=== PATIENT | male | born 1930 | race Hispanic/Latino ===

== ENCOUNTER 2019-01-29 12:08 | Inpatient (IN) | payer MEDICARE ==
--- NOTE | 2019-01-29 12:49 | RAD ---
RADIOGRAPH CHEST 1 VIEW: DATE: 01/29/2019 TIME: 12:26 PM HISTORY: 88-year-old male status post chest trauma from fall COMPARISON: None available FINDINGS: There is a patchy airspace density at the right mid-lower lung zone. No pulmonary edema. No pneumotho rax. IMPRESSION: Right-sided infiltrate: Pneumonia versus aspiration pneumonia.
[2019-01-29 13:13] LABS: #Lymphocytes 0.8 thou/uL (1.20-3.40); #Monocytes 0.3 thou/uL (0.11-0.59); #Neutrophils 7.3 thou/uL (1.40-6.50); %Basophils 0.1 % (0.0-1.0); %Eosinophils 0.1 % (0.0-10.0); %Lymphocytes 9.2 % (21.0-51.0); %Monocytes 3.4 % (0.0-10.0); %Neutrophils 87.2 % (42.0-75.0); Hemoglobin 13.8 g/dL (14.0-18.0); Mean Corpuscular HGB CONC 33.2 g/dL (32.0-36.0); Mean Corpuscular Hemoglobin 30.2 pg (27.0-31.0); Mean Corpuscular Volume 90.8 fL (78.0-98.0); Platelet Count 207 thou/uL (130-400); RBC Distribution Width 12.6 % (11.5-14.5); Red Blood Cell (RBC) Count 4.58 mill/uL (4.70-6.10); White Blood Cell (WBC) Count 8.4 thou/uL (4.8-10.8)
[2019-01-29 13:32] LABS: Acetaminophen Less than 6.0 mcg/mL (10.0-30.0); Alcohol Less than 10 mg/dL (Less than 10); Salicylate Less than 8.0 mg/dL (15.0-30.0)
[2019-01-29 13:36] LABS: ALT (SGPT) 44 U/L (8-55); AST (SGOT) 27 U/L (5-34); Albumin 4.1 g/dL (3.4-4.8); Alkaline Phosphatase 102 U/L (40-150); Anion Gap 15 mmol/L (10-20); BUN (Urea Nitrogen) 19 mg/dL (8.4-25.7); Bilirubin, Total 0.9 mg/dL (0.2-1.2); CK (CPK) 278 U/L (30-200); Calc. Creatinine Clearance 0 mL/min (70-130); Calcium 9.5 mg/dL (7.8-10.44); Carbon Dioxide 23 mmol/L (23-31); Chloride 104 mmol/L (98-107); Estimated GFR-MDRD 66; Glucose 87 mg/dL (83-110); Potassium 4.1 mmol/L (3.5-5.1); Protein, Total 7.1 g/dL (5.8-8.1); Sodium 138 mmol/L (136-145)
[2019-01-29] MEDS ORDERED: Azithromycin 500 MG VIAL ONE (13:59)
[2019-01-29] MEDS ORDERED: cefTRIAXone\\ROCEPHIN 2 GM VIAL ONE (14:00)
--- NOTE | 2019-01-29 14:08 | CT ---
CT OF HEAD NONCONTRAST: 01/29/19 INDICATION: Altered mental status. COMPARISON: 10/20/18. FINDINGS: Again demonstrated, there is a moderate sized region of encephalomalacia involving the posterior righ t cerebral hemisphere with associated ex vacuo dilatation of the ventricular system. Mild chronic isc hemic disease of the cerebral white matter is redemonstrated. There is no intracranial hemorrhage, ma ss effect or midline shift. IMPRESSION: Stable head CT, without acute intracranial hemorrhage or mass effect. POS: C
[2019-01-29 15:09] LABS: Bilirubin Negative (Negative); Blood, Urine Trace (Negative); Glucose, Urine (Dipstick) Negative (Negative); Leukocyte Negative (Negative); Nitrite Negative (Negative); Protein, Urine (Dipstick) Negative (Neg-Trace); Urobilinogen 0.2 mg/dL (Less than 2)
[2019-01-29 15:11] LABS: Clarity Clear (Clear)
[2019-01-29 15:16] LABS: Bacteria/HPF None Seen HPF (None Seen); Hyaline Casts/LPF NONE SEEN LPF (0-3 Hyaline); RBC/HPF 0-3 HPF (0-3); Squamous Epithelial 0-3 HPF (0-3); WBC/HPF 0-3 HPF (0-3)
[2019-01-29 15:19] LABS: Amphetamine Not Detected (NotDetected); Barbiturates Screen Not Detected (NotDetected); Benzodiazepine Screen Not Detected (NotDetected); Cocaine Metabolite Screen Not Detected (NotDetected); Medtox Control Line Valid? VALID (VALID); Medtox Reader # READER 1; Methadone Not Detected (NotDetected); Methamphetamine Not Detected (NotDetected); Opiate Screen Not Detected (NotDetected); Oxycodone Screen Not Detected (NotDetected); Phencyclidine (PCP) Not Detected (NotDetected); THC/Cannabinoid Screen Not Detected (NotDetected); Tricyclic Screen Not Detected (NotDetected)
[2019-01-29] MEDS ORDERED: Lorazepam 2 MG/ML VIAL SLOW IVP PRN (16:40)
[2019-01-29] MEDS ORDERED: Ondansetron ODT 4 MG TAB PO PRN (16:41)
[2019-01-29] MEDS ORDERED: Ondansetron PF 4 MG/2 ML Vial IVP PRN (16:41)
[2019-01-29] MEDS ORDERED: Acetaminophen 325 MG TAB PO PRN (16:41)
[2019-01-29] MEDS ORDERED: Acetaminophen 650 MG Suppository PR PRN (16:41)
[2019-01-29] MEDS ORDERED: Bisacodyl 5 MG TAB PO PRN (16:41)
[2019-01-29] MEDS ORDERED: Calcium Carbonate 500 MG ChewTAB PO PRN (16:41)
[2019-01-29 17:23] LABS: Lactic Acid 1.7 mmol/L (0.5-2.2)
[2019-01-29 17:26] LABS: Magnesium 1.8 mg/dL (1.6-2.6); Phosphorus 2.3 mg/dL (2.3-4.7)
[2019-01-29 17:54] LABS: Folate (Folic Acid) 4.3 ng/mL (7.0-31.4)
--- NOTE | 2019-01-29 18:12 | HP ---
CHIEF COMPLAINT: Syncope versus seizure. PRIMARY CARE PHYSICIAN: Dr. Nikita Mancuso. HISTORY OF PRESENT ILLNESS: The patient is an 88-year-old male with dementia who was brought into the hospital with above complaint. History obtained from the son Toby at the bedside. No information is available from the patient. Home health care visit note from yesterday was also reviewed. His previous records from September 2018 hospitalization was reviewed. Please note that patient has 2 different medical records. Previous records are found at . The patient fell approximately around 11:30 am. This was witnessed. The family noticed some generalized jerking. He was at his baseline prior to this episode. After the fall he started becoming more confused. There was no urinary or bowel incontinence reported. He was standing at that time. There is no fever or chills reported. No nausea, vomiting, diarrhea, or sick contacts reported. In the emergency room, his initial vital signs showed temperature of 98.3 respiration of 20, pulse rate of 110, blood pressure of 156/99 with O2 saturation 100% on room air. Chest x-ray showed right-sided infiltrate. The patient received ceftriaxone, azithromycin, and IV fluids in the emergency room. PAST MEDICAL HISTORY: 1. Alzheimer's dementia. 2. Hypertension. 3. Peptic ulcer disease. 4. History of H. pylori in the past. 5. History of intracranial bleed in 2013, requiring surgical intervention. 6. Gait imbalance. 7. History of Elkins's esophagus. PAST SURGICAL HISTORY: 1. Colonoscopy. 2. Shoulder injection. 3. EGD. 4. Evacuation of hematoma in 2013. 5. PEG tube placement in 2013 with subsequent removal. ALLERGIES: NO KNOWN DRUG ALLERGIES. CURRENT HOME MEDICATIONS: The patient only takes a statin and [id number] PPI per family report. He does not take any other home medications. SOCIAL HISTORY: The patient is a former smoker. He has good family support. He is retired, . No current use of alcohol or drug use. He is full code per family. His family makes a decision as a whole. FAMILY HISTORY: Father had heart attack. Heart disease runs in his family. REVIEW OF SYSTEMS: Cannot be obtained from the patient due to current cognitive status. PHYSICAL EXAMINATION: VITAL SIGNS: As discussed above. GENERAL: An 88-year-old male with confusion. HEENT: Head, atraumatic and normocephalic. Sclerae anicteric. Dry mucous membranes. No oral lesions. NECK: Supple. No JVD appreciated. No carotid bruit. LUNGS: Showed rales at bases, especially on the right with scattered rhonchi. No accessory muscle use. No wheezing. HEART: S1 and S2 present. Tachycardic. No rubs or gallops. 2/6 systolic murmur over the mitral area. ABDOMEN: Soft, nontender. Bowel sounds present. EXTREMITIES: No edema or calf tenderness. NEUROLOGY: The patient is agitated, confused, moving all of his extremities. Rest of the neurological examination could not be done due to current cognitive status. PSYCHIATRY: As discussed above. SKIN: Warm and dry. LYMPH NODES: No palpable lymph nodes in the neck. PERIPHERAL: Vascular, radial pulses palpable bilaterally. MUSCULOSKELETAL: No joint swelling, tenderness. LABORATORY FINDINGS: CBC showed WBC of 8.4 with hemoglobin 13.8, hematocrit 41.6, platelet 207, neutrophils 87.2, lactic acid 3.0. Repeat lactic acid 1.7. BNP 143. Troponin was negative. CK was 278. LFTs in normal range. Sodium 138, potassium 4.1. Urinalysis was negative for wbc, bacteria. Urine drug screen was negative. Chest x-ray by my review showed right lower lobe infiltrate. CT scan of the brain by my review was negative for acute findings. EKG by my review showed sinus tachycardia with right bundle-branch block. IMPRESSION: 1. Syncope versus seizure. 2. Toxic metabolic encephalopathy secondary to pneumonia, suspected aspiration. 3. Hypertension. 4. Chronic kidney disease, stage 2. 5. History of intracranial hemorrhage requiring craniotomy in the past. 6. Swallow dysfunction requiring percutaneous endoscopic gastrostomy tube in the past. 7. Lactic acidosis secondary to pneumonia with dehydration. 8. History of peptic ulcer disease. 9. Alzheimer dementia. PLAN: The patient will be monitored in the stroke unit. Neurology will be consulted. Seizure precautions. We will start him on IV Zosyn with doxycycline. Consult Speech Therapy. IV hydration. Recheck labs in a.m. Check TSH. Neuro checks. Resume PPIs. We will add low-dose Seroquel. Ativan p.r.n. for agitation. Plan was discussed with son Toby in detail. He stated understanding. The patient will require 2 to 3 days for stabilization. Job ID: [id number]
[2019-01-30] MEDS: Piperacillin/Tazobactam 3.375 GM in Sodium Chloride 0.9% 100 ML IVPB SCH ×6 (00:25→23:35)
[2019-01-30] MEDS: D5 1/2 NS w/20 mEq KCL 1,000 ML IV SCH ×6 (00:26→19:25)
[2019-01-30] MEDS: Folic Acid 1 MG TAB PO SCH ×4 (00:33→20:30)
[2019-01-30] MEDS ORDERED: Lorazepam 2 MG/ML VIAL IM PRN (01:09)
[2019-01-30 03:23] VITALS: BMI 23.3
[2019-01-30] MEDS ORDERED: Sterile Water 10 ML VIAL FS SCH (04:00)
[2019-01-30] MEDS ORDERED: Ziprasidone 20 MG VIAL IM SCH (04:00)
[2019-01-30 05:03] LABS: #Eosinphils 0.1 thou/uL (0.0-0.7); #Lymphocytes 1.3 thou/uL (1.20-3.40); #Monocytes 0.5 thou/uL (0.11-0.59); %Basophils 0.2 % (0.0-1.0); %Eosinophils 0.9 % (0.0-10.0); %Lymphocytes 22.9 % (21.0-51.0); %Monocytes 7.6 % (0.0-10.0); %Neutrophils 68.5 % (42.0-75.0); Hemoglobin 13.3 g/dL (14.0-18.0); Mean Corpuscular HGB CONC 33.8 g/dL (32.0-36.0); Mean Corpuscular Hemoglobin 30.4 pg (27.0-31.0); Mean Corpuscular Volume 90.1 fL (78.0-98.0); Mean Platelet Volume 6.9 fL (7.4-10.4); Platelet Count 186 thou/uL (130-400); RBC Distribution Width 12.6 % (11.5-14.5); Red Blood Cell (RBC) Count 4.36 mill/uL (4.70-6.10); White Blood Cell (WBC) Count 5.9 thou/uL (4.8-10.8)
[2019-01-30 05:23] LABS: ALT (SGPT) 38 U/L (8-55); AST (SGOT) 42 U/L (5-34); Albumin 3.9 g/dL (3.4-4.8); Alkaline Phosphatase 95 U/L (40-150); Anion Gap 10 mmol/L (10-20); BUN (Urea Nitrogen) 15 mg/dL (8.4-25.7); Bilirubin, Total 1.3 mg/dL (0.2-1.2); Calc. Creatinine Clearance 50 mL/min (70-130); Calcium 9.4 mg/dL (7.8-10.44); Carbon Dioxide 28 mmol/L (23-31); Chloride 101 mmol/L (98-107); Estimated GFR-MDRD 72; Globulin 3.3 g/dL (2.4-3.5); Glucose 79 mg/dL (83-110); Potassium 3.2 mmol/L (3.5-5.1); Protein, Total 7.2 g/dL (5.8-8.1); Sodium 136 mmol/L (136-145)
[2019-01-30] MEDS: Senokot S 8.6-50 MG TAB PO SCH ×3 (08:46→20:30)
[2019-01-30] MEDS: Doxycycline 100 MG CAP PO SCH ×3 (08:46→20:30)
[2019-01-30] MEDS: Saccharomyces boulardii 250 MG CAP PO SCH (09:39)
[2019-01-30] MEDS: Enoxaparin Sodium 30 MG/0.3 ML SYRINGE SC SCH (09:39)
[2019-01-30] MEDS: Potassium Chloride 20 MEQ TAB PO SCH ×2 (09:39→17:05)
--- NOTE | 2019-01-30 14:21 | PRG ---
DATE OF SERVICE: 01/30/2019 SUBJECTIVE: An 88-year-old male with dementia, was admitted yesterday with syncope versus seizure. He was found to have right lower lobe pneumonia. Overnight, the patient required a dose of Geodon due to significant agitation. He also pulled his IV access last night. At this time, he is calm, awake, and follows commands to some extent. He is, however, somnolent. OBJECTIVE: VITAL SIGNS: Temperature 98.1, pulse rate of 53, respirations 16, blood pressure of 161/70, O2 saturation 96% on room air. GENERAL: An 88-year-old male, in no apparent distress. Somnolent. HEENT: Head, atraumatic and normocephalic. Sclerae anicteric. Moist mucous membranes. No oral lesion. NECK: Supple. No JVD. No carotid bruit. LUNGS: Showed some rales at right bases. No wheezing, rhonchi. No accessory muscle use. HEART: S1, S2 present. Regular rate and rhythm. No rubs or gallops. ABDOMEN: Soft. Bowel sounds present. No rebound or guarding. EXTREMITIES: No edema or calf tenderness. NEUROLOGY AND PSYCHIATRY: Examination could not be reliably done due to current cognitive status. CARDIOVASCULAR STUDIES: Telemetry monitoring by my review showed sinus rhythm. CURRENT MEDICATIONS: Reviewed. The patient is on Zosyn and doxycycline along with IV fluids. IMPRESSION: 1. Syncope versus seizure. 2. Toxic metabolic encephalopathy secondary to pneumonia, questionable aspiration. 3. Folic acid deficiency. 4. Hypertension. 5. Chronic kidney disease, stage 2. 6. History of intracranial hemorrhage, requiring craniotomy in the past. 7. History of swallow dysfunction, requiring PEG tube in the past. 8. Lactic acidosis, improving. 9. History of peptic ulcer disease. 10. Alzheimer's dementia. 11. Abnormal LFTs. 12. Hypokalemia. SIGNIFICANT LABORATORY DATA: Potassium 3.2, BUN 15, creatinine 0.9, folic acid 4.3. TSH was normal. Total bilirubin 1.3, AST of 42. Blood culture and urine cultures are negative. PLAN: The patient will be monitored in the Stroke Unit. Await Neurology input. Continue Zosyn along with doxycycline. Continue low-dose Seroquel along with Ativan as needed. We will recheck labs in a.m. Continue other medications. Replace potassium. Job ID: [id number]
[2019-01-30] MEDS ORDERED: cloNIDine 0.1 MG TAB PO PRN (18:19)
[2019-01-30] MEDS ORDERED: Amlodipine 5 MG TAB PO SCH (18:30)
[2019-01-30] MEDS ORDERED: Simvastatin 5 MG TAB PO SCH (21:00)
[2019-01-30] MEDS ORDERED: Cyanocobalamin (Vitamin B-12) 1,000 MCG TAB PO SCH (21:00)
[2019-01-30] MEDS ORDERED: Prevnar 13-Val Conj/PF 0.5 ML SYRINGE IM ONE (21:00)
[2019-01-31] MEDS: Piperacillin/Tazobactam 3.375 GM in Sodium Chloride 0.9% 100 ML IVPB SCH ×3 (05:10→17:27)
[2019-01-31 06:49] LABS: #Basophils 0.1 thou/uL (0.0-0.2); #Eosinphils 0.1 thou/uL (0.0-0.7); #Monocytes 0.3 thou/uL (0.11-0.59); %Basophils 1.4 % (0.0-1.0); %Eosinophils 1.6 % (0.0-10.0); %Lymphocytes 17.5 % (21.0-51.0); %Monocytes 6.3 % (0.0-10.0); %Neutrophils 73.3 % (42.0-75.0); Hemoglobin 13.3 g/dL (14.0-18.0); Mean Corpuscular HGB CONC 33.9 g/dL (32.0-36.0); Mean Corpuscular Hemoglobin 30.5 pg (27.0-31.0); Mean Corpuscular Volume 90.1 fL (78.0-98.0); Mean Platelet Volume 7.1 fL (7.4-10.4); Platelet Count 205 thou/uL (130-400); RBC Distribution Width 12.6 % (11.5-14.5); Red Blood Cell (RBC) Count 4.37 mill/uL (4.70-6.10); White Blood Cell (WBC) Count 5.5 thou/uL (4.8-10.8)
[2019-01-31 07:11] LABS: ALT (SGPT) 32 U/L (8-55); AST (SGOT) 43 U/L (5-34); Albumin 3.8 g/dL (3.4-4.8); Alkaline Phosphatase 80 U/L (40-150); Anion Gap 12 mmol/L (10-20); BUN (Urea Nitrogen) 12 mg/dL (8.4-25.7); Bilirubin, Total 1.1 mg/dL (0.2-1.2); Calc. Creatinine Clearance 47 mL/min (70-130); Calcium 10.1 mg/dL (7.8-10.44); Carbon Dioxide 27 mmol/L (23-31); Chloride 107 mmol/L (98-107); Estimated GFR-MDRD 68; Globulin 3.4 g/dL (2.4-3.5); Glucose 104 mg/dL (83-110); Potassium 3.8 mmol/L (3.5-5.1); Protein, Total 7.2 g/dL (5.8-8.1); Sodium 142 mmol/L (136-145)
--- NOTE | 2019-01-31 08:16 | RAD ---
RADIOGRAPH CHEST 1 VIEW: DATE: 01/31/2019 TIME: 7:05 AM HISTORY: Follow-up pneumonia in 88-year-old male COMPARISON: 01/29/2019 FINDINGS: The focal alveolar infiltrate at right lower lung zone has improved and is currently faint. No pulmon korey edema or cardiomegaly. No pneumothorax. IMPRESSION: Interval improvement in right-sided pneumonia
[2019-01-31] MEDS ORDERED: Amlodipine 5 MG TAB PO SCH ×2 (09:00)
[2019-01-31] MEDS: Saccharomyces boulardii 250 MG CAP PO SCH (09:56)
[2019-01-31] MEDS: Enoxaparin Sodium 30 MG/0.3 ML SYRINGE SC SCH (09:56)
[2019-01-31] MEDS: Senokot S 8.6-50 MG TAB PO SCH (09:56)
[2019-01-31] MEDS: Folic Acid 1 MG TAB PO SCH (09:57)
[2019-01-31] MEDS ORDERED: D5 1/2 NS w/20 mEq KCL 1,000 ML IV SCH (10:29)
[2019-01-31] MEDS: D5 1/2 NS w/20 mEq KCL 1,000 ML IV SCH (10:51)
--- NOTE | 2019-01-31 11:04 | PRG ---
DATE OF SERVICE: 01/31/2019 SUBJECTIVE: An 88-year-old male with dementia, admitted 2 days ago with syncope versus seizure. He was also found to have right lower lobe pneumonia. He required Geodon the previous night for agitation. He was started on Keppra yesterday by Neurology. He is also on Seroquel 25 mg at bedtime which was started on admission. There were no overnight issues. He is tolerating mechanical soft diet. No fever, chills, or agitation reported. REVIEW OF SYSTEMS: Cannot be obtained from the patient due to current cognitive status. CURRENT MEDICATIONS: Reviewed. The patient has been started on Keppra. He is also on IV fluids along with Zosyn for aspiration pneumonia. He is unable to tolerate doxycycline which will be discontinued. PHYSICAL EXAMINATION: VITAL SIGNS: Temperature 97.8, pulse rate of 52, respirations of 16, blood pressure 147/68, O2 saturation 95% on room air. Telemetry monitoring by my review showed sinus rhythm. GENERAL: An 88-year-old male, in no apparent distress, appears comfortable. NECK: Supple. No JVD. No carotid bruit. LUNGS: Clear to auscultation bilaterally with few rhonchi at right base. HEART: S1, S2 present. Regular rate and rhythm. No rubs or gallops. ABDOMEN: Soft, nontender. Bowel sounds present. EXTREMITIES: No edema. NEUROLOGY/PSYCHIATRY: Could not be reliably done due to current cognitive status. DIAGNOSTIC TESTS: Chest x-ray today from my review showed interval improvement of the right-sided pneumonia. WBC 5.5 with 73.3% neutrophils. Potassium has improved to 3.8. Creatinine 1.04. Total bilirubin has improved from 1.3 to 1.1. IMPRESSION: 1. Suspected seizure, started on Keppra by Neurology. 2. Toxic metabolic encephalopathy secondary to suspected seizure as well as aspiration pneumonia. 3. Folic acid deficiency, started on supplementation. 4. Hypertension. 5. Chronic kidney disease, stage 2. 6. Swallow dysfunction, currently on mechanical soft diet. He required PEG tube in the past which was subsequently removed. 7. Lactic acidosis. 8. Peptic ulcer disease. 9. Alzheimer's dementia. 10. History of intracranial hemorrhage requiring craniotomy in the past. 11. Abnormal LFTs probably secondary to sepsis, improving. 12. Hypokalemia. 13. Chronic anemia. PLAN: We will continue Keppra per Neurology. We will change it to p.o. at discharge. Continue Zosyn for now. Increase amlodipine to b.i.d. due to elevated blood pressure. Continue vitamin B12 and folic acid supplementation. Lovenox for DVT prophylaxis. Continue Seroquel at bedtime. I confirmed with Dr. Shore, who recommended to continue Seroquel. Disposition probably later today or in the a.m. if stable. Plan was discussed with the son, Toby, in detail. He stated understanding. Job ID: [id number]
--- NOTE | 2019-01-31 13:15 | CON ---
DATE OF CONSULTATION: 01/31/2019 CONSULTING PHYSICIAN: Hospitalist Service. IMPRESSION: 1. New onset seizure. 2. 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 4. Hypertension. PLAN: 1. Keppra 500 mg twice a day. 2. The patient will be discharged to home. HISTORY OF PRESENT ILLNESS: Mr. Barnes is an 88-year-old gentleman, who lives at home with his family. His son reports that he has a moderate degree of dementia. He gets around the house with a walker. He is usually able to control his bowels. He has some difficulty with making decisions and has to be guided in day-to-day activities. He apparently was found in an unusual position and unresponsive. In hindsight, there had been a previous episode that appeared to be a seizure. This was a few months ago. He was brought in for evaluation. He had a CT of the brain which showed old right posterior cerebral artery stroke. Laboratory studies were all unremarkable including a B12 and B6 level. His vital signs have been stable since admission without any evidence of fever. No further seizure activity has been witnessed. He was started on Keppra yesterday. He slept through the night reasonably well. He has not had any further problems. PAST MEDICAL HISTORY: As listed above. ALLERGIES: NONE. SOCIAL HISTORY: No tobacco or alcohol use. FAMILY HISTORY: Noncontributory. MEDICATION LIST: Reviewed. REVIEW OF SYSTEMS: Personally not available due to his dementia. PHYSICAL EXAMINATION: GENERAL: He is a well-nourished elderly man, lying in bed, in no acute distress. VITAL SIGNS: Blood pressure 152/71, pulse 73, respirations 18, and temperature 97.5. HEENT: Pupils equal. Conjunctivae clear. Oropharynx clear. Cranium, normocephalic and atraumatic. NECK: Supple. No lymphadenopathy. EXTREMITIES: No cyanosis, clubbing, or edema. NEUROLOGIC: He awakened reasonably well. He carried on very short conversation. Speech was fluent and clear. No facial asymmetries were noted. No motor deficits were noted. No abnormal movements were seen. Sensation was grossly intact. Gait was not tested. LABORATORY DATA: Laboratory studies were reviewed. IMAGING STUDIES: Imaging was reviewed. SUMMARY: Elderly gentleman with dementia and secondary seizure. He seems to be stable. I advised his son to monitor for any change in personality secondary to the medication and follow up with him in the office. Job ID: [id number]
[2019-01-31 15:41] VITALS: BP 136/65; TEMP 97.8
--- NOTE | 2019-01-31 18:05 | DIS ---
DATE OF ADMISSION: 01/29/2019 DATE OF DISCHARGE: 01/31/2019 DISCHARGE DISPOSITION: Home. FOLLOWUP: 1. Follow up with primary care physician, Dr. Nikita Mancuso in 1 week. 2. Follow up with Dr. Shore, Neurology in 1 to 2 weeks. Fall precaution was emphasized. ALLERGIES: NO KNOWN DRUG ALLERGIES. DISCHARGE MEDICATIONS: 1. Augmentin 600 mg twice daily for next 7 days. 2. Vitamin B12 and folic acid daily. 3. Keppra 500 mg b.i.d. 4. Multivitamin 1 tablet daily. 5. Florastor 250 mg daily for 2 weeks. 6. daily. 7. Amlodipine 2.5 mg daily. INPATIENT MDM SR: Neurology, Dr. Shore. The patient was seen and examined on the day of discharge. Please refer to my progress note for details. BRIEF HOSPITAL COURSE: The patient is an 88-year-old male with dementia, presented to the hospital on 29 January 2019 with altered mentation along with syncope versus seizure. Please refer to the history and physical for further details. The patient was admitted to the hospital with a diagnosis of syncope versus seizure along with aspiration pneumonia, and he was monitored in the stroke unit and was started on IV antibiotics. He was seen by Neurology, Dr. Shore, who recommended initiating Keppra. A chest x-ray on admission showed right lower lobe infiltrate that has improved on today's x-ray. The family requested the patient to be discharged since he gets in the hospital. Seroquel 25 mg at bedtime has been added after discussion with Neurology. He appears stable for discharge. He did not have any episode of syncope or seizure during this hospital stay. FINAL DIAGNOSES: 1. Suspected seizure, started on Keppra by Neurology. 2. Toxic metabolic encephalopathy secondary to #1 as well as aspiration pneumonia. 3. Folic acid deficiency. He has been started on folic acid supplementation. 4. Chronic kidney disease, stage 2. 5. Swallow dysfunction. Speech Therapy recommended mechanical soft diet. 6. Hypertension. 7. Lactic acidosis on admission, resolved. 8. Peptic ulcer disease. 9. History of intracranial hemorrhage, requiring craniotomy in the past. 10. Lactic acidosis secondary to pneumonia with dehydration. 11. History of peptic ulcer disease. 12. Alzheimer dementia. PLAN: Plan was discussed with the patient and the family in detail. They stated understanding of this patient was 33 minutes. Job ID: [id number]
== END 2019-01-31 18:46 | disposition home or self-care (01) | DRG 177 ==
LOC: EDBD 12:08 → ERS 12:08 → ERHOLD 14:51 → 2SE 19:49
PROVIDERS: ADMIT Internal Medicine; ATTEND Internal Medicine
DX: J69.0 Pneumonitis due to inhalation of food and vomit (principal); G92 Toxic encephalopathy; E87.2 Acidosis; G40.909 Epilepsy, unspecified, not intractable, without status epilepticus; E78.00 Pure hypercholesterolemia, unspecified; F41.9 Anxiety disorder, unspecified; G30.9 Alzheimer's disease, unspecified; F02.80 Dementia in other diseases classified elsewhere, unspecified severity, without behavioral disturbance, psychotic disturbance, mood disturbance, and anxiety; K27.9 Peptic ulcer, site unspecified, unspecified as acute or chronic, without hemorrhage or perforation; I12.9 Hypertensive chronic kidney disease with stage 1 through stage 4 chronic kidney disease, or unspecified chronic kidney disease; N18.2 Chronic kidney disease, stage 2 (mild); E86.0 Dehydration; E87.6 Hypokalemia; E53.8 Deficiency of other specified B group vitamins; D63.1 Anemia in chronic kidney disease; Z87.891 Personal history of nicotine dependence; Z79.899 Other long term (current) drug therapy
CPT/HCPCS: 36415; 36416; 51701; 70450; 71045; 80053; 80306; 80307; 81003; 82550; 82607; 82746; 83605; 83735; 83880; 84100; 84443; 84484; 85025; 87040; 87086; 93005; 96361; 96365; 96367; J0456; J0696; J1650; J1953; J2060; J2543; J3486; J3490